=== PATIENT | female | born 1975 | race Caucasian/White ===

== ENCOUNTER 2019-06-01 13:48 | Emergency (ER) | payer MEDICAID ==
[2019-06-01] MEDS ORDERED: KETOROLAC TROMETHAMINE 60 MG/2 ML VIAL ONE (14:14)
== END 2019-06-01 14:21 | disposition home or self-care (01) ==
LOC: EDH 13:48
DX: N63.10 Unspecified lump in the right breast, unspecified quadrant (principal); F32.9 Major depressive disorder, single episode, unspecified; Z90.89 Acquired absence of other organs; Z90.710 Acquired absence of both cervix and uterus; Z72.0 Tobacco use; Z88.8 Allergy status to other drugs, medicaments and biological substances
CPT/HCPCS: 96372; 99283; J1885

== ENCOUNTER 2020-03-30 21:19 | Emergency (ER) | payer MEDICAID ==
[2020-03-30 22:12] LABS: BASOPHILS % (AUTO) 0.7 % (0.0-5.0); EOSINOPHILS % (AUTO) 4.1 % (0.0-8.0); HEMATOCRIT 37.7 % (36-48); LYMPHOCYTES % (AUTO) 47.6 % (21.0-51.0); MEAN CORPUSCULAR HEMOGLOBIN 31.3 pg (27.0-33.0); MEAN CORPUSCULAR HGB CONC 34.7 g/dL (32.0-36.0); MONOCYTES % (AUTO) 8.3 % (3.0-13.0); NEUTROPHILS % (AUTO) 39.2 % (40.0-77.0); PLATELET COUNT (AUTO) 237 K/uL (130-400); RED BLOOD CELL COUNT(AUTO) 4.19 MIL/uL (4.00-5.50); RED CELL DISTRIBUTION WIDTH 14.2 % (11.0-15.5); WHITE BLOOD COUNT (AUTO) 8.1 K/uL (4.8-10.8)
[2020-03-30 22:17] LABS: BILIRUBIN,URINE Negative (NEGATIVE); COLOR,URINE Yellow (YELLOW); GLUCOSE, URINE (UA) Negative (NEGATIVE); KETONES,URINE Negative (NEGATIVE); LEUKOCYTE ESTERASE ,URINE Negative (NEGATIVE); NITRATE,URINE Negative (NEGATIVE); OCCULT BLOOD,URINE Negative (NEGATIVE); PROTEIN,URINE Negative (NEGATIVE)
[2020-03-30 22:23] LABS: APPEARANCE,URINE CLEAR (CLEAR)
[2020-03-30 22:24] LABS: AMPHET/METH SCREEN,URINE NEGATIVE (NEGATIVE); BARBITURATE SCREEN, URINE NEGATIVE (NEGATIVE); BENZODIAZEPINES SCREEN,URINE NEGATIVE (NEGATIVE); CANNABINOID SCREEN,URINE POSITIVE (NEGATIVE); COCAINE SCREEN,URINE NEGATIVE (NEGATIVE); OPIATE SCREEN,URINE NEGATIVE (NEGATIVE); PHENCYCLIDINE SCREEN,URINE NEGATIVE (NEGATIVE)
[2020-03-30 22:28] LABS: HCG,QUAL RESULT NEGATIVE (NEGATIVE)
[2020-03-30 22:41] LABS: CHLORIDE 106 mmol/L (101-111); POTASSIUM 3.4 mmol/L (3.5-5.1); SODIUM SERUM 138 mmol/L (136-145)
[2020-03-30 22:57] LABS: ALANINE AMINOTRANSFERASE 8 U/L (12-78); ALBUMIN 3.4 g/dL (3.5-5.0); ASPARTATE AMINOTRANSFERASE 8 U/L (10-37); BILIRUBIN,TOTAL 0.5 mg/dL (0.2-1.0); CARBON DIOXIDE 23 mmol/L (21-32); CREATININE 0.9 mg/dL (0.5-1.5); GLOMERULAR FILTR. RATE CALC 72 mL/min (>60); GLUCOSE,RANDOM 88 mg/dL (70-105); TOTAL PROTEIN, SERUM 6.1 g/dL (6.0-8.3); UREA NITROGEN, BLOOD 15 mg/dL (7-18)
[2020-03-31 01:50] LABS: ACETAMINOPHEN 3 mcg/mL (10-30); ALCOHOL, BLOOD < 3 mg/dL (0-10); SALICYLATE 6.9 mg/dL (2.8-20.0)
[2020-03-31] MEDS ORDERED: POTASSIUM BICARB/CIT AC 25 MEQ TABLET.EFF ONE (02:16)
== END 2020-03-31 03:49 | disposition home or self-care (01) ==
LOC: EDH 21:19
DX: F31.9 Bipolar disorder, unspecified (principal); R45.851 Suicidal ideations; F12.10 Cannabis abuse, uncomplicated; F43.10 Post-traumatic stress disorder, unspecified; F41.9 Anxiety disorder, unspecified; Z88.8 Allergy status to other drugs, medicaments and biological substances; Z90.710 Acquired absence of both cervix and uterus; Z98.890 Other specified postprocedural states
CPT/HCPCS: 36415; 80053; 80305; 81003; 81025; 85025; 99283; G0480 ×2; G0481

== ENCOUNTER 2022-04-06 00:47 | Emergency (ER) | payer MEDICAID ==
[~2022-04-06] VITALS: Ht 160 cm; Wt 45.4 kg
[2022-04-06 01:41] LABS: BASOPHILS % (AUTO) 0.5 % (0.0-5.0); EOSINOPHILS % (AUTO) 5.2 % (0.0-8.0); HEMATOCRIT 42.6 % (36-48); LYMPHOCYTES % (AUTO) 38.6 % (21.0-51.0); MEAN CORPUSCULAR HEMOGLOBIN 31.1 pg (27.0-33.0); MEAN CORPUSCULAR HGB CONC 34.3 g/dL (32.0-36.0); MEAN CORPUSCULAR VOLUME 90.6 fL (79-99); MONOCYTES % (AUTO) 8.6 % (3.0-13.0); NEUTROPHILS % (AUTO) 46.9 % (40.0-77.0); PLATELET COUNT (AUTO) 247 K/uL (130-400); RED CELL DISTRIBUTION WIDTH 13.4 % (11.0-15.5); WHITE BLOOD COUNT (AUTO) 11.9 K/uL (4.8-10.8)
[2022-04-06 01:42] LABS: APPEARANCE,URINE CLEAR (CLEAR); BILIRUBIN,URINE NEGATIVE (NEGATIVE); COLOR,URINE YELLOW (YELLOW); GLUCOSE, URINE (UA) NEGATIVE (NEGATIVE); KETONES,URINE NEGATIVE (NEGATIVE); LEUKOCYTE ESTERASE ,URINE NEGATIVE (NEGATIVE); NITRATE,URINE NEGATIVE (NEGATIVE); OCCULT BLOOD,URINE NEGATIVE (NEGATIVE); PH,URINE 6.5 (5.0-8.0); PROTEIN,URINE NEGATIVE (NEGATIVE); UROBILINOGEN,URINE 0.2 mg/dL (0.2-1.0)
[2022-04-06 01:51] LABS: AMPHET/METH SCREEN,URINE NEGATIVE (NEGATIVE); BARBITURATE SCREEN, URINE NEGATIVE (NEGATIVE); BENZODIAZEPINES SCREEN,URINE NEGATIVE (NEGATIVE); CANNABINOID SCREEN,URINE POSITIVE (NEGATIVE); CARBON DIOXIDE 24 mmol/L (21-32); CHLORIDE 101 mmol/L (101-111); COCAINE SCREEN,URINE POSITIVE (NEGATIVE); CREATININE 0.7 mg/dL (0.5-1.5); GLOMERULAR FILTR. RATE CALC 95 mL/min (>60); GLUCOSE,RANDOM 89 mg/dL (70-105); OPIATE SCREEN,URINE NEGATIVE (NEGATIVE); PHENCYCLIDINE SCREEN,URINE NEGATIVE (NEGATIVE); POTASSIUM 3.9 mmol/L (3.5-5.1); SODIUM SERUM 136 mmol/L (136-145); UREA NITROGEN, BLOOD 11 mg/dL (7-18)
[2022-04-06 01:55] LABS: ALANINE AMINOTRANSFERASE 14 U/L (12-78); ALBUMIN 3.7 g/dL (3.5-5.0); ASPARTATE AMINOTRANSFERASE 20 U/L (10-37); BILIRUBIN,TOTAL 0.4 mg/dL (0.2-1.0); SALICYLATE 8.8 mg/dL (2.8-20.0); TOTAL PROTEIN, SERUM 7.2 g/dL (6.0-8.3)
[2022-04-06 02:06] VITALS: BP 104/66
[2022-04-06 02:11] LABS: ACETAMINOPHEN < 1 mcg/mL (10-30); ALCOHOL, BLOOD < 3 mg/dL (0-10)
== END 2022-04-06 03:58 | disposition home or self-care (01) ==
LOC: EDH 00:47
DX: Z04.6 Encounter for general psychiatric examination, requested by authority (principal); Z20.822 Contact with and (suspected) exposure to COVID-19; F41.9 Anxiety disorder, unspecified; F32.A Depression, unspecified; F43.10 Post-traumatic stress disorder, unspecified; Z98.890 Other specified postprocedural states; Z88.8 Allergy status to other drugs, medicaments and biological substances
CPT/HCPCS: 36415; 80053; 80305; 81003; 85025; 87635; 99283; C9803; G0481

== ENCOUNTER 2024-06-12 20:07 | Emergency (ER) | payer OTHER, MEDICAID ==
[~2024-06-12] VITALS: Ht 160 cm; Wt 39.5 kg
[2024-06-12 20:54] LABS: APPEARANCE,URINE CLEAR (CLEAR); BILIRUBIN,URINE NEGATIVE (NEGATIVE); COLOR,URINE COLORLESS (YELLOW); GLUCOSE, URINE (UA) NEGATIVE (NEGATIVE); KETONES,URINE NEGATIVE (NEGATIVE); LEUKOCYTE ESTERASE ,URINE NEGATIVE Leu/uL (NEGATIVE); NITRATE,URINE NEGATIVE (NEGATIVE); OCCULT BLOOD,URINE MODERATE (NEGATIVE); PROTEIN,URINE NEGATIVE (NEGATIVE); UROBILINOGEN,URINE 0.2 mg/dL (0.2-1.0)
[2024-06-12 20:56] LABS: ADD UA MICROSCOPIC YES
[2024-06-12 21:01] LABS: MUCUS,URINE RARE LPF (None Seen); RBC,URINE 0-1 /HPF (0-1); SQUAMOUS EPITHELIAL CELL,UR RARE /HPF (0-2)
[2024-06-12 21:07] LABS: BASOPHILS # (AUTO) 0.04 K/uL (0.00-0.20); BASOPHILS % (AUTO) 0.5 % (0.0-5.0); EOSINOPHILS # (AUTO) 0.28 K/uL (0.00-0.70); EOSINOPHILS % (AUTO) 3.4 % (0.0-8.0); HEMATOCRIT 34.4 % (36-48); IMMATURE GRANULOCYTE ABSOLUTE 0.02 K/uL (0-1); LYMPHOCYTES # (AUTO) 3.7 K/uL (1.0-4.8); LYMPHOCYTES % (AUTO) 45.3 % (21.0-51.0); MEAN CORPUSCULAR HEMOGLOBIN 31.1 pg (27.0-33.0); MEAN CORPUSCULAR HGB CONC 33.7 g/dL (32.0-36.0); MEAN CORPUSCULAR VOLUME 92.2 fL (79-99); MONOCYTES # (AUTO) 0.9 K/uL (0.1-1.0); MONOCYTES % (AUTO) 10.8 % (3.0-13.0); NEUTROPHILS # (AUTO) 3.2 K/uL (1.8-7.7); NEUTROPHILS % (AUTO) 39.8 % (40.0-77.0); PLATELET COUNT (AUTO) 257 K/uL (130-400); RED BLOOD CELL COUNT(AUTO) 3.73 MIL/uL (4.00-5.50); WHITE BLOOD COUNT (AUTO) 8.1 K/uL (4.8-10.8)
[2024-06-12] MEDS: 0.9%NACL 1000ML 1,000 ML IV ONE (21:07)
[2024-06-12] MEDS: KETOROLAC 30MG VIAL (30MG/ML) IVP ONE (21:07)
[2024-06-12 21:18] LABS: CREATININE 0.9 mg/dL (0.5-1.0); POTASSIUM 3.5 mmol/L (3.5-5.1)
[2024-06-12 21:23] LABS: ALBUMIN 3.4 g/dL (3.5-5.0); BILIRUBIN,TOTAL 0.6 mg/dL (0.2-1.0); TOTAL PROTEIN, SERUM 6.2 g/dL (6.0-8.3)
[2024-06-12] MEDS ORDERED: IOHEXOL-350 75 ML VIAL IV ONE (22:00)
[2024-06-12] MEDS ORDERED: CIPR-278 PO (23:25)
[2024-06-12 23:50] VITALS: BP 121/72; PULSE 80; RESP 16; O2SAT 97
[2024-06-14] MEDS ORDERED: CEPH500T PO (19:21)
[2024-06-14] MEDS ORDERED: FLUC200T PO (19:21)
== END 2024-06-13 00:15 ==
LOC: EDH 20:07
DX: K52.9 Noninfective gastroenteritis and colitis, unspecified (principal); R10.2 Pelvic and perineal pain; R11.2 Nausea with vomiting, unspecified; F41.9 Anxiety disorder, unspecified; Z88.8 Allergy status to other drugs, medicaments and biological substances; Z90.710 Acquired absence of both cervix and uterus; Z79.899 Other long term (current) drug therapy
CPT/HCPCS: 99285; 74177; 96374; 80053; 83690; 85025; 81001; 36415; J7030; J1885; Q9967

== ENCOUNTER 2024-06-14 16:56 | Emergency (ER) | payer OTHER, MEDICAID ==
[~2024-06-14] VITALS: Ht 157.5 cm; Wt 49.9 kg
[~2024-06-14 16:56] MED LIST: CIPR-278 PO
[2024-06-14 17:25] LABS: BASOPHILS # (AUTO) 0.05 K/uL (0.00-0.20); BASOPHILS % (AUTO) 0.7 % (0.0-5.0); EOSINOPHILS # (AUTO) 0.38 K/uL (0.00-0.70); HEMATOCRIT 36.4 % (36-48); IMMATURE GRANULOCYTE ABSOLUTE 0.02 K/uL (0-1); LYMPHOCYTES # (AUTO) 3.4 K/uL (1.0-4.8); LYMPHOCYTES % (AUTO) 44.6 % (21.0-51.0); MEAN CORPUSCULAR HEMOGLOBIN 31.7 pg (27.0-33.0); MEAN CORPUSCULAR HGB CONC 34.1 g/dL (32.0-36.0); MEAN CORPUSCULAR VOLUME 93.1 fL (79-99); MONOCYTES # (AUTO) 0.8 K/uL (0.1-1.0); MONOCYTES % (AUTO) 10.2 % (3.0-13.0); NEUTROPHILS % (AUTO) 39.2 % (40.0-77.0); PLATELET COUNT (AUTO) 259 K/uL (130-400); RED BLOOD CELL COUNT(AUTO) 3.91 MIL/uL (4.00-5.50); RED CELL DISTRIBUTION WIDTH 13.8 % (11.0-15.5); WHITE BLOOD COUNT (AUTO) 7.6 K/uL (4.8-10.8)
[2024-06-14 17:27] LABS: APPEARANCE,URINE CLEAR (CLEAR); BILIRUBIN,URINE NEGATIVE (NEGATIVE); COLOR,URINE COLORLESS (YELLOW); GLUCOSE, URINE (UA) NEGATIVE (NEGATIVE); KETONES,URINE NEGATIVE (NEGATIVE); LEUKOCYTE ESTERASE ,URINE NEGATIVE Leu/uL (NEGATIVE); NITRATE,URINE NEGATIVE (NEGATIVE); OCCULT BLOOD,URINE NEGATIVE (NEGATIVE); PROTEIN,URINE NEGATIVE (NEGATIVE); UROBILINOGEN,URINE 0.2 mg/dL (0.2-1.0)
[2024-06-14 17:28] LABS: ADD UA MICROSCOPIC YES
[2024-06-14 17:32] LABS: SQUAMOUS EPITHELIAL CELL,UR RARE /HPF (0-2); UNCLASSIFIED CRYSTAL 3 /HPF (None Seen); YEAST,URINE BUDDING FEW /HPF (None Seen)
[2024-06-14 17:35] LABS: AMPHET/METH SCREEN,URINE NEGATIVE (NEGATIVE); BARBITURATE SCREEN, URINE NEGATIVE (NEGATIVE); BENZODIAZEPINES SCREEN,URINE NEGATIVE (NEGATIVE); CANNABINOID SCREEN,URINE POSITIVE (NEGATIVE); COCAINE SCREEN,URINE NEGATIVE (NEGATIVE); OPIATE SCREEN,URINE NEGATIVE (NEGATIVE); PHENCYCLIDINE SCREEN,URINE NEGATIVE (NEGATIVE)
[2024-06-14 17:38] LABS: CREATININE 0.8 mg/dL (0.5-1.0); POTASSIUM 3.9 mmol/L (3.5-5.1)
[2024-06-14 17:42] LABS: ALBUMIN 3.5 g/dL (3.5-5.0); BILIRUBIN,TOTAL 0.2 mg/dL (0.2-1.0); CREATINE KINASE, TOTAL 172 U/L (21-232); TOTAL PROTEIN, SERUM 6.4 g/dL (6.0-8.3)
[2024-06-14] MEDS: 0.9%NACL 1000ML 1,000 ML IV ONE (18:56)
[2024-06-14] MEDS: ONDANSETRON 4MG INJ IV ONE (19:00)
[2024-06-14] MEDS: fluCONazole 200 MG/NS 100 ML IVPB SCH (19:00)
[2024-06-14] MEDS: MORPHINE 2 MG SYG IVP ONE (19:00)
[2024-06-14] MEDS ORDERED: FLUC200T PO (19:21)
[2024-06-14] MEDS ORDERED: CEPH500T PO (19:21)
[2024-06-14] MEDS ORDERED: IOHEXOL-350 75 ML VIAL IV ONE (19:57)
[2024-06-14] MEDS: cefTRIAXone 1G VIAL IVPB ONE (20:59)
[2024-06-14 21:47] VITALS: BP 132/82; PULSE 72; RESP 16; O2SAT 98
== END 2024-06-14 22:01 ==
LOC: EDH 16:56
DX: K59.00 Constipation, unspecified (principal); N39.0 Urinary tract infection, site not specified; F41.9 Anxiety disorder, unspecified; Z79.899 Other long term (current) drug therapy; Z88.8 Allergy status to other drugs, medicaments and biological substances; Z98.890 Other specified postprocedural states
CPT/HCPCS: 99285; 74177; 96365; 76705; 96375; 71045; 96366; 82550; 84484; 80053; 80305; 83690; 85025; 36415; 96368; 81001; J2270; J7030; J1450; J0696; J2405; Q9967

== ENCOUNTER 2024-11-11 08:52 | Emergency (ER) | payer MEDICAID, OTHER ==
[~2024-11-11] VITALS: Ht 160 cm; Wt 38.6 kg
[~2024-11-11 08:52] MED LIST changes: +CEPH500T PO; +FLUC200T PO
[2024-11-11 10:01] LABS: BASOPHILS # (AUTO) 0.07 K/uL (0.00-0.20); BASOPHILS % (AUTO) 1.1 % (0.0-5.0); EOSINOPHILS # (AUTO) 0.29 K/uL (0.00-0.70); EOSINOPHILS % (AUTO) 4.7 % (0.0-8.0); HEMATOCRIT 41.8 % (36-48); IMMATURE GRANULOCYTE ABSOLUTE 0.02 K/uL (0-1); LYMPHOCYTES # (AUTO) 2.4 K/uL (1.0-4.8); LYMPHOCYTES % (AUTO) 37.9 % (21.0-51.0); MEAN CORPUSCULAR HEMOGLOBIN 30.8 pg (27.0-33.0); MEAN CORPUSCULAR HGB CONC 33.3 g/dL (32.0-36.0); MEAN CORPUSCULAR VOLUME 92.7 fL (79-99); MONOCYTES # (AUTO) 0.7 K/uL (0.1-1.0); NEUTROPHILS # (AUTO) 2.8 K/uL (1.8-7.7); PLATELET COUNT (AUTO) 316 K/uL (130-400); RED BLOOD CELL COUNT(AUTO) 4.51 MIL/uL (4.00-5.50); RED CELL DISTRIBUTION WIDTH 13.8 % (11.0-15.5); WHITE BLOOD COUNT (AUTO) 6.2 K/uL (4.8-10.8)
--- NOTE | 2024-11-11 10:01 | EKG ---
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
[2024-11-11 10:02] LABS: APPEARANCE,URINE CLEAR (CLEAR); BILIRUBIN,URINE NEGATIVE (NEGATIVE); COLOR,URINE LIGHT-YELLOW (YELLOW); GLUCOSE, URINE (UA) NEGATIVE (NEGATIVE); KETONES,URINE 5 mg/dL (NEGATIVE); LEUKOCYTE ESTERASE ,URINE NEGATIVE Leu/uL (NEGATIVE); NITRATE,URINE NEGATIVE (NEGATIVE); PROTEIN,URINE NEGATIVE (NEGATIVE); UROBILINOGEN,URINE 0.2 mg/dL (0.2-1.0)
[2024-11-11 10:08] LABS: INR 0.95 (0.85-1.15); PROTHROMBIN TIME 10.7 SEC (9.6-11.6)
[2024-11-11 10:10] LABS: PARTIAL THROMBOPLASTIN TIME 30.6 SEC (26.3-35.5)
[2024-11-11 10:12] LABS: ALBUMIN 3.9 g/dL (3.5-5.0); BILIRUBIN,DIRECT 0.2 mg/dL (0.0-0.3); BILIRUBIN,TOTAL 0.9 mg/dL (0.2-1.0); CREATININE 0.8 mg/dL (0.5-1.0); POTASSIUM 4.1 mmol/L (3.5-5.1); TOTAL PROTEIN, SERUM 6.8 g/dL (6.0-8.3)
[2024-11-11] MEDS: morPHINE 2 MG SYG IVP ONE (10:12)
[2024-11-11] MEDS: ondanSETRON 4MG INJ IVP ONE (10:12)
[2024-11-11] MEDS: FAMOTIDINE 20MG VIAL IV ONE (10:12)
[2024-11-11 10:34] LABS: BACTERIA,URINE RARE /HPF (None Seen); CALCIUM OXALATE CRYSTALS,UR MANY /LPF (None Seen); MUCUS,URINE RARE LPF (None Seen); SQUAMOUS EPITHELIAL CELL,UR RARE /HPF (0-2)
--- NOTE | 2024-11-11 11:47 | ERN ---
General Chief Complaint: Abdominal Pain Stated Complaint: ABD PAIN Time Seen by MD: 08:58 History of Present Illness Initial Comments 49-year-old female no past medical history came in for abdominal pain located in epigastric region. Patient denies nausea vomiting. Patient also denies fever chills. Patient otherwise has no concerns. Allergies: Coded Allergies: citalopram (Unverified Allergy, Unknown, 06/01/19) divalproex sodium (Unverified Allergy, Unknown, 06/01/19) lithium (Unverified Allergy, Unknown, 06/01/19) olanzapine (Unverified Allergy, Unknown, 06/01/19) risperidone (Unverified Allergy, Unknown, 06/01/19) Home Meds Active Scripts Fluconazole (Diflucan) 200 Mg Tablet, 200 MG PO ONCE, #1 TAB Prov:BREANNE TERRY MD 06/14/24 Cephalexin (Cephalexin) 500 Mg Tablet, 500 MG PO QID, #20 TAB Prov:BREANNE TERRY MD 06/14/24 Ciprofloxacin HCl (Cipro) 500 Mg Tablet, 1 TAB PO BID for 5 Days, #10 TAB 0 Refills Prov:NEISHA KIRBY MD 06/12/24 Past Medical History Past Medical History: Anxiety, Bipolar, Depression, Seizure, Other Medical History Other: SI/SA Past Surgical History: Appendectomy, Hysterectomy, Tonsillectomy Surgical History Other: ABD SX FOR BOWEL REPAIR AT Social History Social History: Other Female( History) History: Not Applicable ROS Dictation CONSTITUTIONAL: Negative except for HPI HEAD/FACE: Negative except for HPI EENT: Negative except for HPI RESPIRATORY: Negative except for HPI GASTROINTESTINAL/ABDOMINAL: Negative except for HPI GENITOURINARY: Negative except for HPI MUSCULOSKELETAL: Negative except for HPI INTEGUMENTARY: Negative except for HPI NEUROLOGICAL/PSYCH: Negative except for HPI HEMATOLOGIC/LYMPHATIC: Negative except for HPI All Systems Negative, Except as noted above. 13 point review of systems assessed and all negative except for above. Physical Exam Physical Exam Dictation Vital Signs reviewed General Appearance: Alert, oriented x 3, no acute distress, well developed, nourished. Head and Face: non-traumatic. Eyes: PERRL, pink conjunctivas, eyelid no trauma, anterior chamber with arcus senilis. Ears: Pinnas intact and no signs of trauma or erythema ear canals clear and no discharge TM no erythema Nose: No discharge, no bleeding. Oropharynx: Mouth normal, tongue pink, pharynx clear,no erythema, tonsils no exudates, no abscesses noted, mucous membrane moist Neck: Supple, non-tender, no thyromegaly, no masses, no JVD, no bruits Breast:Deferred Chest:No tenderness, no crepitus, no paradoxical movement, no retractions Lungs:Clear, well-ventilated, symmetric, no rales, no wheezing, no rhonchi, no stridor, good breath sounds bilaterally Heart: Regular rate, regular rhythm, no murmur, no gallops Vascular: no peripheral edema, Abdomen: Soft, positive bowel sounds, nondistended, no guarding, nontender, no rebound, no masses no hepatomegaly, no splenomegaly, no Aguilar's sign, no hernias. Rectal: Deferred Genital: Deferred Neurological: Normal speech, motor function intact, sensory function intact Musculoskeletal: Neck nontender, full range of motion, back nontender, full range of motion, Extremities: nontender, full range of motion Skin: Color pink, dry, no turgor, no rash, no lacerations, no abrasions, no contusions. Lymphatic: Deferred Results Laboratory and Microbiology Lab and Micro Result Laboratory Tests Test 11/11/24 09:20 11/11/24 09:49 Urine Color LIGHT-YELLOW (YELLOW) Urine Appearance CLEAR (CLEAR) Urine pH 5.0 (5.0-8.0) Urine Specific [place] 1.020 (1.001-1.031) Urine Protein NEGATIVE mg/dL (NEGATIVE) Urine Glucose (UA) NEGATIVE mg/dL (NEGATIVE) Urine Ketones 5 mg/dL (NEGATIVE) H Urine Occult Blood +- (TRACE) (NEGATIVE) H Urine Nitrate NEGATIVE (NEGATIVE) Urine Bilirubin NEGATIVE mg/dL (NEGATIVE) Urine Urobilinogen 0.2 mg/dL (0.2-1.0) Urine Leukocyte Esterase NEGATIVE Moiz/uL Urine RBC 2-5 /HPF (0-1) H Urine WBC 2-5 /HPF (0-1) H Urine Squamous Epithelial Cells RARE /HPF (0-2) Urine Calcium Oxalate Crystals MANY /LPF (None Seen) Urine Bacteria RARE /HPF (None Seen) White Blood Count 6.2 K/uL (4.8-10.8) Red Blood Count 4.51 MIL/uL (4.00-5.50) Hemoglobin 13.9 g/dL (12.0-16.0) Hematocrit 41.8 % (36-48) Mean Corpuscular Volume 92.7 fL (79-99) Mean Corpuscular Hemoglobin 30.8 pg (27.0-33.0) Mean Corpuscular Hemoglobin Concent 33.3 g/dL (32.0-36.0) Red Cell Distribution Width 13.8 % (11.0-15.5) Platelet Count 316 K/uL (130-400) Mean Platelet Volume 8.4 fL (7.5-10.5) Immature Granulocyte % (Auto) 0.3 % (0-1) Neutrophils (%) (Auto) 45.0 % (40.0-77.0) Lymphocytes (%) (Auto) 37.9 % (21.0-51.0) Monocytes (%) (Auto) 11.0 % (3.0-13.0) Eosinophils (%) (Auto) 4.7 % (0.0-8.0) Basophils (%) (Auto) 1.1 % (0.0-5.0) Neutrophils # (Auto) 2.8 K/uL (1.8-7.7) Lymphocytes # (Auto) 2.4 K/uL (1.0-4.8) Monocytes # (Auto) 0.7 K/uL (0.1-1.0) Eosinophils # (Auto) 0.29 K/uL (0.00-0.70) Basophils # (Auto) 0.07 K/uL (0.00-0.20) Absolute Immature Granulocyte (auto 0.02 K/uL (0-1) Nucleated Red Blood Cells 0.0 % (0.0-0.19) Prothrombin Time 10.7 SEC (9.6-11.6) Prothromb Time International Ratio 0.95 (0.85-1.15) Activated Partial Thromboplast Time 30.6 SEC (26.3-35.5) Sodium Level 140 mmol/L (136-145) Potassium Level 4.1 mmol/L (3.5-5.1) Chloride Level 106 mmol/L (101-111) Carbon Dioxide Level 28 mmol/L (21-32) Blood Urea Nitrogen 18 mg/dL (7-18) Creatinine 0.8 mg/dL (0.5-1.0) Glomerular Filtration Rate Calc 90 mL/min (>90) Random Glucose 87 mg/dL (70-105) Lactic Acid Level 0.9 mmol/L (0.8-2.5) Total Calcium 8.5 mg/dL (8.5-10.1) Total Bilirubin 0.9 mg/dL (0.2-1.0) Direct Bilirubin 0.2 mg/dL (0.0-0.3) Aspartate Amino Transf (AST/SGOT) 18 U/L (10-37) Alanine Aminotransferase (ALT/SGPT) 21 U/L (12-78) Alkaline Phosphatase 96 U/L (50-136) Total Protein 6.8 g/dL (6.0-8.3) Albumin 3.9 g/dL (3.5-5.0) Lipase 39 U/L (16-77) Procalcitonin < 0.05 ng/mL (0.05-0.5) L MDM CC: Historian: Patient Comorbidities: Limitations by social determinants of health: None Differential diagnosis: Clinical exam: Vital signs: EKG: Labs: ED Course Orders Procedure Category Date Status Time 12 Lead Ekg Tracing- EKG 11/11/24 Complete Technical 09:07 Cbc With Differential LAB 11/11/24 Complete 09:07 Basic Metabolic Panel LAB 11/11/24 Complete 09:07 Hepatic Function Panel LAB 11/11/24 Complete 09:07 Lipase LAB 11/11/24 Complete 09:07 Lactic Acid LAB 11/11/24 Complete 09:07 Procalcitonin LAB 11/11/24 Complete 09:07 Pt And Ptt LAB 11/11/24 Complete 09:07 Urinalysis LAB 11/11/24 Complete W/Microscopic 09:07 Morphine 2mg Syg PHA 11/11/24 Complete (Morphine 2mg Syg) 09:30 Famotidine 20mg Vial PHA 11/11/24 Complete (Pepcid 20mg Vial) 09:30 Ondansetron 4mg Inj PHA 11/11/24 Complete (Zofran 4mg Inj) 09:30 Current Medications Medications (Trade) Dose Ordered Sig/Michael Route PRN Reason Start Time Stop Time Status Last Admin Dose Admin Famotidine (Pepcid 20mg Vial) 20 mg ONCE ONCE IV 11/11/24 09:30 11/11/24 09:31 DC 11/11/24 10:12 Morphine Sulfate (morPHINE 2MG SYG) 2 mg ONCE ONCE IVP 11/11/24 09:30 11/11/24 09:31 DC 11/11/24 10:12 Ondansetron HCl (zoFRAN 4MG INJ) 4 mg ONCE ONCE IVP 11/11/24 09:30 11/11/24 09:31 DC 11/11/24 10:12 Vital Signs Date Time Temp Pulse Resp B/P (MAP) Pulse Ox O2 Delivery O2 Flow Rate FiO2 11/11/24 10:26 98.2 81 18 112/54 97 Room Air* 0 11/11/24 09:16 98.2 76 18 132/73 97 Room Air* 0 11/11/24 08:54 98.1 86 17 141/83 100 Room Air 0 DX & DISP Disposition: Discharge Departure Impression: Primary Impression: Gastritis Condition: Stable Referrals: SELF,REFERRAL (PCP) JANES CAMARILLO MD Nov 11, 2024 11:47
[2024-11-11 11:57] VITALS: BP 118/63; PULSE 78; RESP 17; TEMP 98.2; O2SAT 97
== END 2024-11-11 14:41 | disposition home or self-care (01) ==
LOC: EDH 08:52
DX: K29.70 Gastritis, unspecified, without bleeding (principal); F31.9 Bipolar disorder, unspecified; Z88.8 Allergy status to other drugs, medicaments and biological substances; Z90.49 Acquired absence of other specified parts of digestive tract; Z90.710 Acquired absence of both cervix and uterus
CPT/HCPCS: 99284; 96374; 96375; 80076; 80048; 83690; 85025; 85610; 85730; 83605; 81001; 36415; 93005; 84145; J3490; J2270; J2405

== ENCOUNTER 2024-12-18 14:40 | Emergency (ER) | payer MEDICAID ==
[~2024-12-18] VITALS: Ht 160 cm; Wt 38.1 kg
--- NOTE | 2024-12-18 14:48 | ERN ---
ED Note History of Present Illness Stated Complaint: STOMACH AND BACK PAIN Time Seen by MD: 14:42 Dictation: PATIENT IS A 49-YEAR-OLD FEMALE HERE WITH COMPLAINTS OF ABDOMINAL PAIN WITH NAUSEA FOR SEVERAL DAYS. NO DIARRHEA NO VOMITING. SHE STATES SHE WAS AT [facility] SEVERAL DAYS AGO AND ADMITTED FOR ACUTE PANCREATITIS AND SIGNED OUT AGAINST MEDICAL ADVICE BECAUSE SHE FELT BETTER THAT DAY AND LEFT. SHE SAID SHE STARTED IMMEDIATELY FEELING WORSE AND NOW CAME TO OUR HOSPITAL FOR ANOTHER OPINION. Allergies: Coded Allergies: citalopram (Unverified Allergy, Unknown, 06/01/19) divalproex sodium (Unverified Allergy, Unknown, 06/01/19) lithium (Unverified Allergy, Unknown, 06/01/19) olanzapine (Unverified Allergy, Unknown, 06/01/19) risperidone (Unverified Allergy, Unknown, 06/01/19) Home Meds Active Scripts Ondansetron (Ondansetron Odt) 4 Mg Tab.rapdis, 4 MG PO Q6HPRN PRN for nausea, #16 TAB 0 Refills Prov:KELLIE MOTA NP 12/18/24 Dicyclomine HCl (Bentyl) 20 Mg Tab, 20 MG PO Q6HPRN PRN for ABDOMINAL CRAMPS /PAIN, #30 TAB Prov:KELLIE MOTA NP 12/18/24 Fluconazole (Diflucan) 200 Mg Tablet, 200 MG PO ONCE, #1 TAB Prov:BREANNE TERRY MD 06/14/24 Cephalexin (Cephalexin) 500 Mg Tablet, 500 MG PO QID, #20 TAB Prov:BREANNE TERRY MD 06/14/24 Ciprofloxacin HCl (Cipro) 500 Mg Tablet, 1 TAB PO BID for 5 Days, #10 TAB 0 Refills Prov:NEISHA KIRBY MD 06/12/24 Past Medical History Past Medical History: Anxiety, Bipolar, Depression, Seizure, Other Additional Past Medical Hx: SI/SA Surgical History: Appendectomy, Hysterectomy, Tonsillectomy Surgical History Other: ABD SX FOR BOWEL REPAIR AT Social History: Other History: Not Applicable RN Note Reviewed/Agreed w/PFSH: Yes Review of System Dictation CONSTITUTIONAL: NEGATIVE EXCEPT FOR HPI HEAD/FACE: NEGATIVE EXCEPT FOR HPI EENT: NEGATIVE EXCEPT FOR HPI RESPIRATORY: NEGATIVE EXCEPT FOR HPI GASTROINTESTINAL/ABDOMINAL: NEGATIVE EXCEPT FOR HPI DIFFUSE ABDOMINAL PAIN WITH NAUSEA GENITOURINARY: NEGATIVE EXCEPT FOR HPI MUSCULOSKELETAL: NEGATIVE EXCEPT FOR HPI INTEGUMENTARY: NEGATIVE EXCEPT FOR HPI NEUROLOGICAL/PSYCH: NEGATIVE EXCEPT FOR HPI HEMATOLOGIC/LYMPHATIC: NEGATIVE EXCEPT FOR HPI ALL SYSTEMS NEGATIVE, EXCEPT NOTED ABOVE. 13 POINT REVIEW OF SYSTEMS ASSESSED AND ALL NEGATIVE EXCEPT FOR ABOVE. Initial Vital Sign VS Vital Signs Date Time Temp Pulse Resp B/P (MAP) Pulse Ox O2 Delivery O2 Flow Rate FiO2 12/18/24 14:49 98.2 90 18 106/70 98 Room Air 0 12/18/24 19:06 21 Physical Exam Dictation VITAL SIGNS REVIEWED GENERAL APPEARANCE: ALERT, ORIENTED X 3, MILD ACUTE DISTRESS, WELL DEVELOPED, NOURISHED. HEAD AND FACE: NON-TRAUMATIC. EYES: PERRL, PINK CONJUNCTIVAS, EYELID NO TRAUMA, ANTERIOR CHAMBER WITH ARCUS SENILIS. EARS: PINNAS INTACT AND NO SIGNS OF TRAUMA OR ERYTHEMA EAR CANALS CLEAR AND NO DISCHARGE TM NO ERYTHEMA NOSE: NO DISCHARGE, NO BLEEDING. OROPHARYNX: MOUTH NORMAL, TONGUE PINK, PHARYNX CLEAR,NO ERYTHEMA, TONSILS NO EXUDATES, NO ABSCESSES NOTED, MUCOUS MEMBRANE MOIST NECK: SUPPLE, NON-TENDER, NO THYROMEGALY, NO MASSES, NO JVD, NO BRUITS BREAST:DEFERRED CHEST:NO TENDERNESS, NO CREPITUS, NO PARADOXICAL MOVEMENT, NO RETRACTIONS LUNGS:CLEAR, WELL-VENTILATED, SYMMETRIC, NO RALES, NO WHEEZING, NO RHONCHI, NO STRIDOR, GOOD BREATH SOUNDS BILATERALLY HEART: REGULAR RATE, REGULAR RHYTHM, NO MURMUR, NO GALLOPS VASCULAR: NO PERIPHERAL EDEMA, ABDOMEN: SOFT, POSITIVE BOWEL SOUNDS, NONDISTENDED, NO GUARDING, NONTENDER, NO REBOUND, NO MASSES NO HEPATOMEGALY, NO SPLENOMEGALY, NO TYSON'S SIGN, NO HERNIAS. NO FOCAL PAIN RECTAL: DEFERRED GENITAL: DEFERRED NEUROLOGICAL: NORMAL SPEECH, MOTOR FUNCTION INTACT, SENSORY FUNCTION INTACT MUSCULOSKELETAL: NECK NONTENDER, FULL RANGE OF MOTION, BACK NONTENDER, FULL RANGE OF MOTION, EXTREMITIES: NONTENDER, FULL RANGE OF MOTION SKIN: COLOR PINK, DRY, NO TURGOR, NO RASH, NO LACERATIONS, NO ABRASIONS, NO CONTUSIONS. LYMPHATIC: DEFERRED Results (Laboratory/Radiology) Laboratory/Radiology Laboratory Tests Test 12/18/24 15:03 12/18/24 15:15 White Blood Count 7.9 K/uL (4.8-10.8) Red Blood Count 4.12 MIL/uL (4.00-5.50) Hemoglobin 12.6 g/dL (12.0-16.0) Hematocrit 37.3 % (36-48) Mean Corpuscular Volume 90.5 fL (79-99) Mean Corpuscular Hemoglobin 30.6 pg (27.0-33.0) Mean Corpuscular Hemoglobin Concent 33.8 g/dL (32.0-36.0) Red Cell Distribution Width 13.3 % (11.0-15.5) Platelet Count 267 K/uL (130-400) Mean Platelet Volume 8.6 fL (7.5-10.5) Immature Granulocyte % (Auto) 0.3 % (0-1) Neutrophils (%) (Auto) 27.8 % (40.0-77.0) L Lymphocytes (%) (Auto) 55.3 % (21.0-51.0) H Monocytes (%) (Auto) 11.1 % (3.0-13.0) Eosinophils (%) (Auto) 4.7 % (0.0-8.0) Basophils (%) (Auto) 0.8 % (0.0-5.0) Neutrophils # (Auto) 2.2 K/uL (1.8-7.7) Lymphocytes # (Auto) 4.4 K/uL (1.0-4.8) Monocytes # (Auto) 0.9 K/uL (0.1-1.0) Eosinophils # (Auto) 0.37 K/uL (0.00-0.70) Basophils # (Auto) 0.06 K/uL (0.00-0.20) Absolute Immature Granulocyte (auto 0.02 K/uL (0-1) Nucleated Red Blood Cells 0.0 % (0.0-0.19) Sodium Level 140 mmol/L (136-145) Potassium Level 3.2 mmol/L (3.5-5.1) L Chloride Level 107 mmol/L (101-111) Carbon Dioxide Level 29 mmol/L (21-32) Blood Urea Nitrogen 13 mg/dL (7-18) Creatinine 0.8 mg/dL (0.5-1.0) Glomerular Filtration Rate Calc 90 mL/min (>90) Random Glucose 84 mg/dL (70-105) Total Calcium 8.3 mg/dL (8.5-10.1) L Lipase 56 U/L (16-77) Urine Color LIGHT-YELLOW (YELLOW) Urine Appearance CLEAR (CLEAR) Urine pH 5.0 (5.0-8.0) Urine Specific [place] 1.009 (1.001-1.031) Urine Protein NEGATIVE mg/dL (NEGATIVE) Urine Glucose (UA) NEGATIVE mg/dL (NEGATIVE) Urine Ketones NEGATIVE mg/dL (NEGATIVE) Urine Occult Blood NEGATIVE (NEGATIVE) Urine Nitrate NEGATIVE (NEGATIVE) Urine Bilirubin NEGATIVE mg/dL (NEGATIVE) Urine Urobilinogen 0.2 mg/dL (0.2-1.0) Urine Leukocyte Esterase 75 Moiz/uL (NEGATIVE) H Urine RBC 0-1 /HPF (0-1) Urine WBC 6-10 /HPF (0-1) H Urine Squamous Epithelial Cells RARE /HPF (0-2) Urine Bacteria None /HPF (None Seen) Labs Reviewed?: Yes ED Course ED Course Orders Procedure Category Date Status Time Cbc With Differential LAB 12/18/24 Complete 14:46 Urinalysis Profile LAB 12/18/24 Complete 14:46 0.9%Nacl 1000ml (Ns PHA 12/18/24 Complete 1000ml) 15:00 Morphine 2mg Syg PHA 12/18/24 Complete (Morphine 2mg Syg) 15:00 Ondansetron 4mg Inj PHA 12/18/24 Complete (Zofran 4mg Inj) 15:00 Lipase LAB 12/18/24 Complete 14:46 Basic Metabolic Panel LAB 12/18/24 Complete 14:46 Culture Urine ELIDA 12/18/24 In Process 15:41 Current Medications Medications (Trade) Dose Ordered Sig/Michael Route PRN Reason Start Time Stop Time Status Last Admin Dose Admin Morphine Sulfate (morPHINE 2MG SYG) 2 mg ONCE ONCE IVP 12/18/24 15:00 12/18/24 15:01 DC 12/18/24 18:21 Ondansetron HCl (zoFRAN 4MG INJ) 4 mg ONCE ONCE IVP 12/18/24 15:00 12/18/24 15:01 DC 12/18/24 18:20 Sodium Chloride 1,000 ml @ 0 mls/hr ONCE ONCE IV 12/18/24 15:00 12/18/24 15:01 DC 12/18/24 18:20 Vital Signs Date Time Temp Pulse Resp B/P (MAP) Pulse Ox O2 Delivery O2 Flow Rate FiO2 12/18/24 19:06 98.2 80 18 110/73 98 Room Air* 0 21 12/18/24 14:49 98.2 90 18 106/70 98 Room Air 0 1820/PATIENT MADE AWARE THAT SHE DOES NOT HAVE ACUTE PANCREATITIS. I WE WILL DISCHARGE HER HOME AFTER FLUIDS AND MORPHINE WITH BENTYL AND HAVE HER FOLLOW UP WITH HER PRIMARY CARE DOCTOR IN 1-2 DAYS. Medical Decision Making MDM MDM: DIFFERENTIAL DIAGNOSIS: ACUTE PANCREATITIS/GASTROENTERITIS/ABDOMINAL CRAMPING/UTI/ELECTROLYTE IMBALANCE RATIONALE: TESTS CONSIDERED AND ORDERED SECONDARY TO SHARED DECISION MAKING INCLUDE:/DEH LABS PREVIOUS OUTSIDE RECORDS REVIEWED: OLD ER VISITS. RISK OF COMPLICATION AND/OR MORBIDITY OR MORTALITY OF PATIENT MANAGEMENT: NONE MEDICATIONS-PER MEDICATION RECONCILIATION NEED FOR HOSPITALIZATION: PATIENT DOES NOT MEET CRITERIA FOR HOSPITALIZATION. NO NEED FOR EMERGENCY MAJOR/MINOR SURGERY: NO THERE ARE NO SOCIAL CONCERNS WITH THIS PATIENT. PRESCRIPTION DRUG MANAGEMENT BENTYL/ZOFRAN ODT PRESCRIPTIONS WILL INCLUDE SYMPTOMATIC CARE PATIENT'S PRIOR EXTERNAL MEDICAL RECORDS FROM OTHER ER VISITS WERE REVIEWED BY ME INDICATED. PRIOR TESTING AND RESULTS FROM PREVIOUS VISITS WERE REVIEWED. PRIOR TESTS WERE TAKEN INTO ACCOUNT WITH MEDICAL DECISION MAKING AND RESOURCE UTILIZATION, INDEPENDENT HISTORIAN/HISTORIANS WERE USED TO OBTAIN COMPLETE MEDICAL HISTORY. I INDEPENDENTLY INTERPRETED THE TEST THAT WERE PERFORMED, RESULTS WERE REVIEWED BY ME AND CONSIDERED FINDINGS ON RADIOLOGY IF ORDERED. MEDICAL MANAGEMENT AND EXAMINATION INTERPRETATION DISCUSSIONS WERE HAD BY ME WITH OTHER QUALIFIED HEALTHCARE PROFESSIONALS INDICATED FOR THE PATIENT'S CARE. DX & DISP Disposition: Discharge Departure Impression: Primary Impression: Gastroenteritis Additional Impressions: Hypokalemia, Abdominal cramps Condition: Stable Scripts Ondansetron (Ondansetron Odt) 4 Mg Tab.rapdis 4 MG PO Q6HPRN PRN for nausea, #16 TAB 0 Refills Prov: KELLIE MOTA SOFTWARE SUPPORT REPRESENTATIVE 12/18/24 Dicyclomine HCl (Bentyl) 20 Mg Tab 20 MG PO Q6HPRN PRN for ABDOMINAL CRAMPS /PAIN, #30 TAB Prov: KELLIE MOTA SOFTWARE SUPPORT REPRESENTATIVE 12/18/24 Additional Instructions: FOLLOW-UP WITH PRIMARY CARE PROVIDER IN 1 TO 2 DAYS. TAKE MEDICATIONS DIRECTED HERE IN THE EMERGENCY ROOM. OKAY TO CONTINUE HOME MEDICATIONS UNLESS OTHERWISE DISCUSSED DURING YOUR VISIT IN THE EMERGENCY ROOM TODAY. RETURN TO YOUR NEAREST EMERGENCY ROOM IF SYMPTOMS WORSEN OR IF THERE IS NO IMPROVEMENT. CALL 911 IF YOU NEED IMMEDIATE ASSISTANCE. TAKE TYLENOL OR MOTRIN [id number] NEEDED AND IF NO CONTRAINDICATIONS ARE PRESENT. INCREASE ORAL HYDRATION. A WOUND CULTURE OR URINE CULTURE WAS ORDERED HERE IN THE EMERGENCY ROOM DEPARTMENT PLEASE FOLLOW-UP WITH PRIMARY CARE PROVIDER AND ADVISE THEM TO GET REPEAT PORTS FROM OUR FACILITY. IF YOU HAD ANY LEVI WRAP/SPLINTS THAT WERE APPLIED HERE, PLEASE DO NOT REMOVE THEM UNTIL YOU SEE YOUR PRIMARY CARE OR SPECIALTY. CLEAR LIQUID DIET FOR THE NEXT18 HOURS AND THEN ADVANCE DIET SLOWLY TO REGULAR. TAKE BENTYL DIRECTED FOR CRAMPING. SEE YOUR PRIMARY CARE DOCTOR FOR FOLLOW UP Referrals: SELF,REFERRAL (PCP) Time of Disposition: 18:24 I have reviewed the case, and I agree with, Diagnosis and Plan KELLIE MOTA NP Dec 18, 2024 14:48 RAF MEYERS DO Dec 19, 2024 06:59
[2024-12-18 15:19] LABS: BASOPHILS # (AUTO) 0.06 K/uL (0.00-0.20); BASOPHILS % (AUTO) 0.8 % (0.0-5.0); EOSINOPHILS # (AUTO) 0.37 K/uL (0.00-0.70); EOSINOPHILS % (AUTO) 4.7 % (0.0-8.0); HEMATOCRIT 37.3 % (36-48); IMMATURE GRANULOCYTE ABSOLUTE 0.02 K/uL (0-1); LYMPHOCYTES # (AUTO) 4.4 K/uL (1.0-4.8); LYMPHOCYTES % (AUTO) 55.3 % (21.0-51.0); MEAN CORPUSCULAR HEMOGLOBIN 30.6 pg (27.0-33.0); MEAN CORPUSCULAR HGB CONC 33.8 g/dL (32.0-36.0); MEAN CORPUSCULAR VOLUME 90.5 fL (79-99); MONOCYTES # (AUTO) 0.9 K/uL (0.1-1.0); MONOCYTES % (AUTO) 11.1 % (3.0-13.0); NEUTROPHILS # (AUTO) 2.2 K/uL (1.8-7.7); NEUTROPHILS % (AUTO) 27.8 % (40.0-77.0); PLATELET COUNT (AUTO) 267 K/uL (130-400); RED BLOOD CELL COUNT(AUTO) 4.12 MIL/uL (4.00-5.50); RED CELL DISTRIBUTION WIDTH 13.3 % (11.0-15.5); WHITE BLOOD COUNT (AUTO) 7.9 K/uL (4.8-10.8)
[2024-12-18 15:30] LABS: CREATININE 0.8 mg/dL (0.5-1.0); POTASSIUM 3.2 mmol/L (3.5-5.1)
[2024-12-18 15:38] LABS: APPEARANCE,URINE CLEAR (CLEAR); BILIRUBIN,URINE NEGATIVE (NEGATIVE); COLOR,URINE LIGHT-YELLOW (YELLOW); GLUCOSE, URINE (UA) NEGATIVE (NEGATIVE); KETONES,URINE NEGATIVE (NEGATIVE); LEUKOCYTE ESTERASE ,URINE 75 Leu/uL (NEGATIVE); NITRATE,URINE NEGATIVE (NEGATIVE); OCCULT BLOOD,URINE NEGATIVE (NEGATIVE); PROTEIN,URINE NEGATIVE (NEGATIVE); UROBILINOGEN,URINE 0.2 mg/dL (0.2-1.0)
[2024-12-18 15:41] LABS: ADD UA MICROSCOPIC YES
[2024-12-18 15:43] LABS: MUCUS,URINE RARE LPF (None Seen); RBC,URINE 0-1 /HPF (0-1); SQUAMOUS EPITHELIAL CELL,UR RARE /HPF (0-2)
[2024-12-18] MEDS: 0.9%NACL 1000ML 1,000 ML IV ONE (18:20)
[2024-12-18] MEDS: ondanSETRON 4MG INJ IVP ONE (18:20)
[2024-12-18] MEDS: morPHINE 2 MG SYG IVP ONE (18:21)
[2024-12-18] MEDS ORDERED: ONDA-243 PO (18:25)
[2024-12-18] MEDS ORDERED: DICY20TA2 PO (18:25)
[2024-12-18 19:06] VITALS: BP 110/73; PULSE 80; RESP 18; TEMP 98.2; O2SAT 98
== END 2024-12-18 19:13 | disposition home or self-care (01) ==
LOC: EDH 14:40
DX: K52.9 Noninfective gastroenteritis and colitis, unspecified (principal); E87.6 Hypokalemia; F31.9 Bipolar disorder, unspecified; Z88.8 Allergy status to other drugs, medicaments and biological substances; Z90.49 Acquired absence of other specified parts of digestive tract; Z90.710 Acquired absence of both cervix and uterus
CPT/HCPCS: 99284; 96374; 96361; 96375; 80048; 83690; 85025; 87086; 81001; 36415; J2270; J7030; J2405

== ENCOUNTER 2024-12-22 20:29 | Emergency (ER) | payer MEDICAID ==
[~2024-12-22] VITALS: Ht 160 cm; Wt 38.1 kg
[~2024-12-22 20:29] MED LIST changes: +DICY20TA2 PO; +ONDA-243 PO
[2024-12-22 21:16] LABS: APPEARANCE,URINE CLEAR (CLEAR); BILIRUBIN,URINE NEGATIVE (NEGATIVE); COLOR,URINE COLORLESS (YELLOW); GLUCOSE, URINE (UA) NEGATIVE (NEGATIVE); KETONES,URINE NEGATIVE (NEGATIVE); LEUKOCYTE ESTERASE ,URINE NEGATIVE Leu/uL (NEGATIVE); NITRATE,URINE NEGATIVE (NEGATIVE); OCCULT BLOOD,URINE NEGATIVE (NEGATIVE); PROTEIN,URINE NEGATIVE (NEGATIVE); UROBILINOGEN,URINE 0.2 mg/dL (0.2-1.0)
[2024-12-22 21:18] LABS: BASOPHILS # (AUTO) 0.06 K/uL (0.00-0.20); BASOPHILS % (AUTO) 0.7 % (0.0-5.0); EOSINOPHILS # (AUTO) 0.55 K/uL (0.00-0.70); EOSINOPHILS % (AUTO) 6.1 % (0.0-8.0); HEMATOCRIT 37.7 % (36-48); IMMATURE GRANULOCYTE ABSOLUTE 0.02 K/uL (0-1); LYMPHOCYTES # (AUTO) 3.9 K/uL (1.0-4.8); LYMPHOCYTES % (AUTO) 42.6 % (21.0-51.0); MEAN CORPUSCULAR HEMOGLOBIN 30.8 pg (27.0-33.0); MEAN CORPUSCULAR HGB CONC 32.9 g/dL (32.0-36.0); MEAN CORPUSCULAR VOLUME 93.8 fL (79-99); MONOCYTES # (AUTO) 0.7 K/uL (0.1-1.0); MONOCYTES % (AUTO) 8.2 % (3.0-13.0); NEUTROPHILS # (AUTO) 3.8 K/uL (1.8-7.7); NEUTROPHILS % (AUTO) 42.2 % (40.0-77.0); PLATELET COUNT (AUTO) 235 K/uL (130-400); RED BLOOD CELL COUNT(AUTO) 4.02 MIL/uL (4.00-5.50); RED CELL DISTRIBUTION WIDTH 13.3 % (11.0-15.5)
[2024-12-22 21:21] LABS: ADD UA MICROSCOPIC NO
[2024-12-22 21:27] LABS: CREATININE 0.7 mg/dL (0.5-1.0); POTASSIUM 4.8 mmol/L (3.5-5.1)
[2024-12-22] MEDS: PANTOPrazole 40 MG/VIAL ONE (22:04)
[2024-12-22] MEDS: ondanSETRON 4MG INJ IVP ONE (22:04)
[2024-12-22] MEDS: ondanSETRON 4MG INJ ONE (22:04)
[2024-12-22] MEDS: PANTOPrazole 40 MG/VIAL IVP ONE (22:04)
--- NOTE | 2024-12-22 22:26 | ERN ---
ED Note History of Present Illness Stated Complaint: FROM [facility] ABDOMINAL PAIN Chief Complaint: Abdominal Pain Time Seen by MD: 20:31 Dictation: This is a 49-year-old female who was referred from [facility] for evaluation of abdominal pain. She has extensive psychiatric history and reported that the abdominal pain is diffuse. She also had nausea and vomitings. She states that she had bowel movements and denied diarrhea hematemesis or melena Temperature 98.1 pulse 83 respirations 16 blood pressure 133/85 with a pulse oximetry of 98% on room air Allergies: Coded Allergies: citalopram (Unverified Allergy, Unknown, 06/01/19) divalproex sodium (Unverified Allergy, Unknown, 06/01/19) lithium (Unverified Allergy, Unknown, 06/01/19) olanzapine (Unverified Allergy, Unknown, 06/01/19) risperidone (Unverified Allergy, Unknown, 06/01/19) Home Meds Active Scripts Magnesium Citrate (Magnesium Citrate) 296 Ml Solution, 296 ML PO ONCE for 1 Day, #296 ML 0 Refills Prov:WILTON GALVIN MD 12/22/24 Sennosides/Docusate Sodium (Senna-Docusate Sodium Tablet) 8.6 Mg-50 Mg Tablet, 1 TAB PO DAILY for 20 Days, #20 TAB 0 Refills Prov:WILTON GALVIN MD 12/22/24 Ondansetron (Ondansetron Odt) 4 Mg Tab.rapdis, 4 MG PO Q6HPRN PRN for nausea, #16 TAB 0 Refills Prov:KELLIE MOTA NP 12/18/24 Dicyclomine HCl (Bentyl) 20 Mg Tab, 20 MG PO Q6HPRN PRN for ABDOMINAL CRAMPS /PAIN, #30 TAB Prov:KELLIE MOTA NP 12/18/24 Fluconazole (Diflucan) 200 Mg Tablet, 200 MG PO ONCE, #1 TAB Prov:BREANNE TERRY MD 06/14/24 Cephalexin (Cephalexin) 500 Mg Tablet, 500 MG PO QID, #20 TAB Prov:BREANNE TERRY MD 06/14/24 Ciprofloxacin HCl (Cipro) 500 Mg Tablet, 1 TAB PO BID for 5 Days, #10 TAB 0 Refills Prov:NEISHA KIRBY MD 06/12/24 Past Medical History Past Medical History: Pancreatitis, Seizure Additional Past Medical Hx: SI/SA Surgical History: Appendectomy, Hysterectomy Surgical History Other: ABD SX FOR BOWEL REPAIR AT PSYCH History: anxiety, bipolar, depression Social History: Other History: Not Applicable RN Note Reviewed/Agreed w/PFSH: Yes Review of System Dictation Constitutional: Negative for fever,chills, and weight loss Eyes: Negative for injury, pain,redness, and discharge ENT: Negative for injury,pain or swelling Cardiovascular: Negative for chest pain, palpitations, and edema Respiratory: Negative for shortness of breath, cough, and wheezing, Abdomen/GI: Positive for abdominal pain, nausea, vomiting, denies diarrhea, Back: Negative for injury and pain : Negative for injury, bleeding and discharge MS/Extremity: Negative for injury and deformity Skin: Negative for rash, and discoloration Neuro: Negative for headache, weakness, numbness, tingling, and seizure Psych: Negative for suicide ideation, homicidal ideation, and hallucinations Initial Vital Sign VS Vital Signs Date Time Temp Pulse Resp B/P (MAP) Pulse Ox O2 Delivery O2 Flow Rate FiO2 12/22/24 20:33 98.1 83 16 133/85 98 Room Air 0 12/23/24 00:53 21 Physical Exam Dictation General: awake, alert, NAD Head/Face: Normocephalic, atraumatic Eyes: PERRL, EOMI, vision at baseline ENT: oral cavity clear, TMs clear, no signs of infection Neck: Trachea midline, supple, no nuchal rigidity Cardiovascular: RRR, normal S1/S2, No MRGs, no JVD Respiratory: CTAB, no respiratory distress, No rales or wheezes Abdomen: Soft, non-tender, non-distended, normal bowel sounds, no guarding or rebound. Skin: Warm, dry, normal turgor, no rash MS/Extremity: Pulses equal, no cyanosis, neurovascular intact, FROM Neuro: COAx4, GCS 15, strength 5/5, CN 2-12 intact, normal cerebellar exam, normal gait, Psych: Normal behavior, mood, and affect normal Extremities-trace edema without any palpable cords, Homans sign is negative Results (Laboratory/Radiology) Laboratory/Radiology Laboratory Tests Test 12/22/24 20:53 12/22/24 21:08 Urine Color COLORLESS (YELLOW) Urine Appearance CLEAR (CLEAR) Urine pH 7.0 (5.0-8.0) Urine Specific [place] 1.002 (1.001-1.031) Urine Protein NEGATIVE mg/dL (NEGATIVE) Urine Glucose (UA) NEGATIVE mg/dL (NEGATIVE) Urine Ketones NEGATIVE mg/dL (NEGATIVE) Urine Occult Blood NEGATIVE (NEGATIVE) Urine Nitrate NEGATIVE (NEGATIVE) Urine Bilirubin NEGATIVE mg/dL (NEGATIVE) Urine Urobilinogen 0.2 mg/dL (0.2-1.0) Urine Leukocyte Esterase NEGATIVE Moiz/uL White Blood Count 9.0 K/uL (4.8-10.8) Red Blood Count 4.02 MIL/uL (4.00-5.50) Hemoglobin 12.4 g/dL (12.0-16.0) Hematocrit 37.7 % (36-48) Mean Corpuscular Volume 93.8 fL (79-99) Mean Corpuscular Hemoglobin 30.8 pg (27.0-33.0) Mean Corpuscular Hemoglobin Concent 32.9 g/dL (32.0-36.0) Red Cell Distribution Width 13.3 % (11.0-15.5) Platelet Count 235 K/uL (130-400) Mean Platelet Volume 8.7 fL (7.5-10.5) Immature Granulocyte % (Auto) 0.2 % (0-1) Neutrophils (%) (Auto) 42.2 % (40.0-77.0) Lymphocytes (%) (Auto) 42.6 % (21.0-51.0) Monocytes (%) (Auto) 8.2 % (3.0-13.0) Eosinophils (%) (Auto) 6.1 % (0.0-8.0) Basophils (%) (Auto) 0.7 % (0.0-5.0) Neutrophils # (Auto) 3.8 K/uL (1.8-7.7) Lymphocytes # (Auto) 3.9 K/uL (1.0-4.8) Monocytes # (Auto) 0.7 K/uL (0.1-1.0) Eosinophils # (Auto) 0.55 K/uL (0.00-0.70) Basophils # (Auto) 0.06 K/uL (0.00-0.20) Absolute Immature Granulocyte (auto 0.02 K/uL (0-1) Nucleated Red Blood Cells 0.0 % (0.0-0.19) Sodium Level 141 mmol/L (136-145) Potassium Level 4.8 mmol/L (3.5-5.1) Chloride Level 105 mmol/L (101-111) Carbon Dioxide Level 34 mmol/L (21-32) H Blood Urea Nitrogen 14 mg/dL (7-18) Creatinine 0.7 mg/dL (0.5-1.0) Glomerular Filtration Rate Calc 105 mL/min (>90) Random Glucose 91 mg/dL (70-105) Total Calcium 8.4 mg/dL (8.5-10.1) L Labs Reviewed?: Yes CT Scan Comment: PATIENT: LAYNE REYES MR#: [id number] : 1975 SEX: F AGE: 49 LOCATION: [facility] ORDER 24 STATUS: [facility] REPORT#: [id number] SERVICE 21 REASON: diffuse abdominal pain ORDERING PHYSICIAN: WILTON GALVIN MD PROCEDURE: ABD PEL WO - CT ABDOMEN/PELVIS W/O CONTRAST CT ABDOMEN/PELVIS W/O CONTRAST HISTORY: Diffuse abdominal pain COMPARISON: 06/14/2024 TECHNIQUE: Multiple sequential axial images of the abdomen and pelvis were obtained from the dome of the diaphragm through symphysis pubis. Patient was not given contrast through intravenous route. Oral contrast was not given. FINDINGS: No pleural effusion is seen bilaterally. There is no evidence of parenchymal disease or pulmonary nodule of the visualized lower lungs. Degenerative changes of the thoracolumbar spine are present. The heart is not enlarged. Liver is borderline enlarged measuring 16 cm. The liver, spleen, adrenal glands and pancreas are unremarkable. There is no evidence of hydronephrosis bilaterally. No evidence of renal stone is seen. Fecal material is seen in the colon. There are normal size retroperitoneal and mesenteric lymph nodes. No ascites is seen. Appendix is not well seen limiting evaluation. There is mild atherosclerosis. Pelvic sidewalls are symmetric bilaterally. Bladder is well distended without wall thickening. IMPRESSION: 1. Large amount of fecal material is seen in the colon. No ascites is seen. CT was performed with one or more following dose reduction techniques: automated exposure control, adjustment of the mA and kv according to patient's size, or use of a iterative reconstruction technique. DICTATED BY: MEHDI MCCARTY MD DATE: 12/22/242300 ELECTRONICALLY SIGNED BY: MEHDI MCCARTY MD DATE: 12/22/242304 ED Course ED Course Orders Procedure Category Date Status Time Cbc With Differential LAB 12/22/24 Complete 20: Basic Metabolic Panel LAB 12/22/24 Complete 20:31 Urinalysis Profile LAB 12/22/24 Complete 20:31 Ondansetron 4mg Inj PHA 12/22/24 Complete (Zofran 4mg Inj) 22:00 Pantoprazole 40mg Inj PHA 12/22/24 Complete (Protonix 40mg Inj 22:00 Pantoprazole 40mg Inj PHA 12/22/24 Complete (Protonix 40mg Inj 22:01 Ondansetron 4mg Inj PHA 12/22/24 Complete (Zofran 4mg Inj) 22:01 Promethazine Hcl PHA 12/22/24 Complete (Phenergan) 22:30 Ct Abdomen/Pelvis W/O CT 12/22/24 Resulted Contrast 22:22 Current Medications Medications (Trade) Dose Ordered Sig/Michael Route PRN Reason Start Time Stop Time Status Last Admin Dose Admin Ondansetron HCl (zoFRAN 4MG INJ) 4 mg ONCE ONCE IVP 12/22/24 22:00 12/22/24 22:02 DC 12/22/24 22:04 Ondansetron HCl (zoFRAN 4MG INJ) 4 mg STK-MED ONCE .ROUTE 12/22/24 22:01 12/22/24 22:01 DC Pantoprazole Sodium (PROTonix 40MG INJ) 40 mg ONCE ONCE IVP 12/22/24 22:00 12/22/24 22:02 DC 12/22/24 22:04 Pantoprazole Sodium (PROTonix 40MG INJ) 40 mg STK-MED ONCE .ROUTE 12/22/24 22:01 12/22/24 22:01 DC Promethazine HCl (Phenergan) 12.5 mg ONCE ONCE IM 12/22/24 22:30 12/22/24 22:31 DC 12/22/24 22:34 Vital Signs Date Time Temp Pulse Resp B/P (MAP) Pulse Ox O2 Delivery O2 Flow Rate FiO2 12/23/24 00:53 97.9 84 16 116/78 99 Room Air* 0 21 12/22/24 20:33 98.1 83 16 133/85 98 Room Air 0 We will perform diagnostic labs, advanced imaging and administer medications according to the patient's complaint. Once the results are available, will review and personally interpreted the labs to rule out any acute life- threatening emergency the trach require immediate intervention and treatment. I will then re-evaluate the patient after treatment and diagnostic exams have return to determine whether the patient requires any further testing, can safely be discharged home or need further admission to hospital for additional treatment and evaluation. Labs reviewed CBC BNP 7 are within normal limits urinalysis is unremarkable for any UTI. CT scan of the abdomen and pelvis was done which only showed large amounts of stool burden but no other abnormalities. She was placed on bowel regimen and laxatives and discharged to [facility] Medical Decision Making MDM MDM: Differential diagnosis: Colitis, gastritis, esophagitis, appendicitis, kidney stone, constipation Rationale: Tests considered and ordered secondary to shared decision making include: Previous outside records reviewed: Old ER visits. Risk of complication and/or morbidity or mortality of patient management: None Medications-Per medication reconciliation Need for hospitalization: Patient does not meet criteria for hospitalization. Need for emergency major/minor surgery: No There are no social concerns with this patient. Prescription drug management Prescriptions will include symptomatic care Patient's prior external medical records from other ER visits were reviewed by me as indicated. Prior testing and results from previous visits were reviewed. Prior tests were taken into account with medical decision making and resource utilization, independent historian/historians were used to obtain complete medical history. I independently interpreted the test that were performed, results were reviewed by me and considered findings on radiology if ordered. Medical management and examination interpretation discussions were had by me with other qualified healthcare professionals as indicated for the patient's care. Problem List Problem List: (1) Constipation (2) Abdominal cramps (3) Nausea and vomiting DX & DISP Disposition: Discharge Departure Impression: Primary Impression: Abdominal pain Additional Impressions: Nausea and vomiting, Constipation Condition: Stable Scripts Magnesium Citrate (Magnesium Citrate) 296 Ml Solution 296 ML PO ONCE for 1 Day, #296 ML 0 Refills Prov: WILTON GALVIN MD 12/22/24 Sennosides/Docusate Sodium (Senna-Docusate Sodium Tablet) 8.6 Mg-50 Mg Tablet 1 TAB PO DAILY for 20 Days, #20 TAB 0 Refills Prov: WILTON GALVIN MD 12/22/24 Additional Instructions: Patient and the caregiver have been informed of all the diagnostic tests and the imaging conducted during the today's visit to the emergency room and has verbalized understanding of the results I have personally reviewed and interpreted all diagnostic exams performed here in the ER today as well as the vital signs documented by the nursing staff. The patient is now being discharged to [facility] Referrals: MEHDI BACA MD (PCP) WILTON GALVIN MD Dec 22, 2024 22:26
[2024-12-22] MEDS: PROMETHAZINE HCL 25 MG/ML 1ML AMPULE IM ONE (22:34)
--- NOTE | 2024-12-22 23:05 | HMCIMG ---
CT ABDOMEN/PELVIS W/O CONTRAST HISTORY: Diffuse abdominal pain COMPARISON: 06/14/2024 TECHNIQUE: Multiple sequential axial images of the abdomen and pelvis were obtained from the dome of the diaphragm through symphysis pubis. Patient was not given contrast through intravenous route. Oral contrast was not given. FINDINGS: No pleural effusion is seen bilaterally. There is no evidence of parenchymal disease or pulmonary nodule of the visualized lower lungs. Degenerative changes of the thoracolumbar spine are present. The heart is not enlarged. Liver is borderline enlarged measuring 16 cm. The liver, spleen, adrenal glands and pancreas are unremarkable. There is no evidence of hydronephrosis bilaterally. No evidence of renal stone is seen. Fecal material is seen in the colon. There are normal size retroperitoneal and mesenteric lymph nodes. No ascites is seen. Appendix is not well seen limiting evaluation. There is mild atherosclerosis. Pelvic sidewalls are symmetric bilaterally. Bladder is well distended without wall thickening. IMPRESSION: 1. Large amount of fecal material is seen in the colon. No ascites is seen. CT was performed with one or more following dose reduction techniques: automated exposure control, adjustment of the mA and kv according to patient's size, or use of a iterative reconstruction technique.
[2024-12-22] MEDS ORDERED: SENN-7 PO (23:37)
[2024-12-22] MEDS ORDERED: MAGN296S73 PO (23:37)
[2024-12-23 00:53] VITALS: BP 116/78; PULSE 84; RESP 16; TEMP 97.8; O2SAT 99
--- NOTE | 2024-12-23 01:08 | NUR ---
PATIENT DISCHARGED WITH [facility] AND PICKED UP BY [facility]
== END 2024-12-23 01:08 ==
LOC: EDH 20:29
DX: R10.9 Unspecified abdominal pain (principal); R11.2 Nausea with vomiting, unspecified; K59.00 Constipation, unspecified; F41.9 Anxiety disorder, unspecified; F31.9 Bipolar disorder, unspecified; Z88.8 Allergy status to other drugs, medicaments and biological substances; Z90.49 Acquired absence of other specified parts of digestive tract; Z90.710 Acquired absence of both cervix and uterus
CPT/HCPCS: 99285; 74176; 96374; 96375; 80048; 85025; 81003; 36415; 96372; J2550; J2405; J2470

== ENCOUNTER 2025-03-07 12:34 | Emergency (ER) | payer MEDICAID ==
[~2025-03-07] VITALS: Ht 160 cm; Wt 35.4 kg
[~2025-03-07 12:34] MED LIST changes: +MAGN296S73 PO; +SENN-7 PO
[2025-03-07 13:49] LABS: BASOPHILS # (AUTO) 0.07 K/uL (0.00-0.20); EOSINOPHILS # (AUTO) 0.22 K/uL (0.00-0.70); EOSINOPHILS % (AUTO) 3.3 % (0.0-8.0); HEMATOCRIT 42.6 % (36-48); IMMATURE GRANULOCYTE ABSOLUTE 0.02 K/uL (0-1); LYMPHOCYTES # (AUTO) 2.6 K/uL (1.0-4.8); LYMPHOCYTES % (AUTO) 38.2 % (21.0-51.0); MEAN CORPUSCULAR HEMOGLOBIN 30.6 pg (27.0-33.0); MEAN CORPUSCULAR VOLUME 89.9 fL (79-99); MONOCYTES # (AUTO) 0.6 K/uL (0.1-1.0); MONOCYTES % (AUTO) 8.9 % (3.0-13.0); NEUTROPHILS # (AUTO) 3.3 K/uL (1.8-7.7); NEUTROPHILS % (AUTO) 48.3 % (40.0-77.0); PLATELET COUNT (AUTO) 269 K/uL (130-400); RED BLOOD CELL COUNT(AUTO) 4.74 MIL/uL (4.00-5.50); RED CELL DISTRIBUTION WIDTH 13.3 % (11.0-15.5); WHITE BLOOD COUNT (AUTO) 6.8 K/uL (4.8-10.8)
[2025-03-07 14:03] LABS: CREATININE 0.8 mg/dL (0.5-1.0); POTASSIUM 3.9 mmol/L (3.5-5.1)
[2025-03-07 14:11] LABS: APPEARANCE,URINE CLOUDY (CLEAR); BILIRUBIN,URINE NEGATIVE (NEGATIVE); COLOR,URINE YELLOW (YELLOW); GLUCOSE, URINE (UA) NEGATIVE (NEGATIVE); KETONES,URINE NEGATIVE (NEGATIVE); LEUKOCYTE ESTERASE ,URINE 25 Leu/uL (NEGATIVE); NITRATE,URINE NEGATIVE (NEGATIVE); OCCULT BLOOD,URINE SMALL (NEGATIVE); PROTEIN,URINE NEGATIVE (NEGATIVE); UROBILINOGEN,URINE 0.2 mg/dL (0.2-1.0)
[2025-03-07 14:16] LABS: ADD UA MICROSCOPIC YES
--- NOTE | 2025-03-07 14:16 | ERN ---
ED Note History of Present Illness Stated Complaint: ABDOMINAL PAIN Chief Complaint: Abdominal Pain Time Seen by MD: 13:07 Time Seen by Midlevel: 13:11 Dictation: 49-year-old female with a history of gastric ulcers, COPD coming in with complaints of left lower quadrant pain and left flank pain. Denies any nausea, vomiting, diarrhea, fevers. Patient states she has also been losing weight. States she had a colonoscopy and EGD scheduled for with takes his digestive but did not do it because of her losing weight and . Allergies: Coded Allergies: citalopram (Unverified Allergy, Unknown, 06/01/19) divalproex sodium (Unverified Allergy, Unknown, 06/01/19) lithium (Unverified Allergy, Unknown, 06/01/19) olanzapine (Unverified Allergy, Unknown, 06/01/19) risperidone (Unverified Allergy, Unknown, 06/01/19) Home Meds Active Scripts Magnesium Citrate (Magnesium Citrate) 296 Ml Solution, 296 ML PO ONCE for 1 Day, #296 ML 0 Refills Prov:WILTON GALVIN MD 12/22/24 Sennosides/Docusate Sodium (Senna-Docusate Sodium Tablet) 8.6 Mg-50 Mg Tablet, 1 TAB PO DAILY for 20 Days, #20 TAB 0 Refills Prov:WILTON GALVIN MD 12/22/24 Ondansetron (Ondansetron Odt) 4 Mg Tab.rapdis, 4 MG PO Q6HPRN PRN for nausea, #16 TAB 0 Refills Prov:KELLIE MOTA NP 12/18/24 Dicyclomine HCl (Bentyl) 20 Mg Tab, 20 MG PO Q6HPRN PRN for ABDOMINAL CRAMPS /PAIN, #30 TAB Prov:KELLIE MOTA NP 12/18/24 Fluconazole (Diflucan) 200 Mg Tablet, 200 MG PO ONCE, #1 TAB Prov:BREANNE TERRY MD 06/14/24 Cephalexin (Cephalexin) 500 Mg Tablet, 500 MG PO QID, #20 TAB Prov:BREANNE TERRY MD 06/14/24 Ciprofloxacin HCl (Cipro) 500 Mg Tablet, 1 TAB PO BID for 5 Days, #10 TAB 0 Refills Prov:NEISHA KIRBY MD 06/12/24 Past Medical History Past Medical History: Anxiety, Bronchitis, COPD, Pancreatitis, Seizure Additional Past Medical Hx: SI/SA,EPHYSEMA Surgical History: Appendectomy, Hysterectomy Surgical History Other: ABD SX FOR BOWEL REPAIR AT Social History: Other History: Not Applicable Review of System Dictation Constitutional: Negative for fever,chills, and weight loss Eyes: Negative for injury, pain,redness, and discharge ENT: Negative for injury,pain or swelling Cardiovascular: Negative for chest pain, palpitations, and edema Respiratory: Negative for shortness of breath, cough, and wheezing, Abdomen/GI: Left lower quadrant pain, no nausea, no vomiting, no diarrhea, and no constipation Back: Negative for injury and pain : Negative for injury, bleeding and discharge MS/Extremity: Negative for injury and deformity Skin: Negative for rash, and discoloration Neuro: Negative for headache, weakness, numbness, tingling, and seizure Psych: Negative for suicide ideation, homicidal ideation, and hallucinations Review of Systems: was completed Initial Vital Sign VS Vital Signs Date Time Temp Pulse Resp B/P (MAP) Pulse Ox O2 Delivery O2 Flow Rate FiO2 03/07/25 12:37 98.8 94 20 104/72 98 Room Air 03/07/25 13:30 0 21 Physical Exam Dictation General: awake, alert, NAD Head/Face: Normocephalic, atraumatic Eyes: PERRL, EOMI, vision at baseline ENT: oral cavity clear, TMs clear, no signs of infection Neck: Trachea midline, supple, no nuchal rigidity Cardiovascular: RRR, normal S1/S2, No MRGs, no JVD Respiratory: CTAB, no respiratory distress, No rales or wheezes Abdomen: Soft, non-tender, non-distended, normal bowel sounds, no guarding or rebound. No CVA tenderness Skin: Warm, dry, normal turgor, no rash MS/Extremity: Pulses equal, no cyanosis, neurovascular intact, FROM Neuro: COAx4, GCS 15, strength 5/5, CN 2-12 intact, normal cerebellar exam, normal gait, Psych: Normal behavior, mood, and affect normal Results (Laboratory/Radiology) Laboratory/Radiology Laboratory Tests Test 03/07/25 13:35 03/07/25 13:43 Urine Color YELLOW (YELLOW) Urine Appearance CLOUDY (CLEAR) H Urine pH 5.0 (5.0-8.0) Urine Specific [place] 1.026 (1.001-1.031) Urine Protein NEGATIVE mg/dL (NEGATIVE) Urine Glucose (UA) NEGATIVE mg/dL (NEGATIVE) Urine Ketones NEGATIVE mg/dL (NEGATIVE) Urine Occult Blood SMALL (NEGATIVE) H Urine Nitrate NEGATIVE (NEGATIVE) Urine Bilirubin NEGATIVE mg/dL (NEGATIVE) Urine Urobilinogen 0.2 mg/dL (0.2-1.0) Urine Leukocyte Esterase 25 Moiz/uL (NEGATIVE) H Urine RBC 2-5 /HPF (0-1) H Urine WBC 6-10 /HPF (0-1) H Urine Squamous Epithelial Cells MANY /HPF (0-2) Urine Bacteria FEW /HPF (None Seen) White Blood Count 6.8 K/uL (4.8-10.8) Red Blood Count 4.74 MIL/uL (4.00-5.50) Hemoglobin 14.5 g/dL (12.0-16.0) Hematocrit 42.6 % (36-48) Mean Corpuscular Volume 89.9 fL (79-99) Mean Corpuscular Hemoglobin 30.6 pg (27.0-33.0) Mean Corpuscular Hemoglobin Concent 34.0 g/dL (32.0-36.0) Red Cell Distribution Width 13.3 % (11.0-15.5) Platelet Count 269 K/uL (130-400) Mean Platelet Volume 8.7 fL (7.5-10.5) Immature Granulocyte % (Auto) 0.3 % (0-1) Neutrophils (%) (Auto) 48.3 % (40.0-77.0) Lymphocytes (%) (Auto) 38.2 % (21.0-51.0) Monocytes (%) (Auto) 8.9 % (3.0-13.0) Eosinophils (%) (Auto) 3.3 % (0.0-8.0) Basophils (%) (Auto) 1.0 % (0.0-5.0) Neutrophils # (Auto) 3.3 K/uL (1.8-7.7) Lymphocytes # (Auto) 2.6 K/uL (1.0-4.8) Monocytes # (Auto) 0.6 K/uL (0.1-1.0) Eosinophils # (Auto) 0.22 K/uL (0.00-0.70) Basophils # (Auto) 0.07 K/uL (0.00-0.20) Absolute Immature Granulocyte (auto 0.02 K/uL (0-1) Nucleated Red Blood Cells 0.0 % (0.0-0.19) Sodium Level 143 mmol/L (136-145) Potassium Level 3.9 mmol/L (3.5-5.1) Chloride Level 106 mmol/L (101-111) Carbon Dioxide Level 28 mmol/L (21-32) Blood Urea Nitrogen 15 mg/dL (7-18) Creatinine 0.8 mg/dL (0.5-1.0) Glomerular Filtration Rate Calc 90 mL/min (>90) Random Glucose 131 mg/dL (70-105) H Total Calcium 8.5 mg/dL (8.5-10.1) Lipase 42 U/L (16-77) Labs Reviewed?: Yes ED Course ED Course Orders Procedure Category Date Status Time Cbc With Differential LAB 03/07/25 Complete 13:27 Basic Metabolic Panel LAB 03/07/25 Complete 13:27 Lipase LAB 03/07/25 Complete 13:27 Urinalysis Profile LAB 03/07/25 Complete 13:27 0.9%Nacl 1000ml (Ns PHA 03/07/25 Complete 1000ml) 13:27 Morphine 2mg Syg PHA 03/07/25 Complete (Morphine 2mg Syg) 13:27 Ondansetron 4mg Inj PHA 03/07/25 Complete (Zofran 4mg Inj) 13:27 Culture Urine ELIDA 03/07/25 In Process 14:18 Current Medications Medications (Trade) Dose Ordered Sig/Michael Route PRN Reason Start Time Stop Time Status Last Admin Dose Admin Morphine Sulfate (morPHINE 2MG SYG) 2 mg ONCE STAT IVP 03/07/25 13:27 03/07/25 13:33 DC 03/07/25 14:22 Ondansetron HCl (zoFRAN 4MG INJ) 4 mg ONCE STAT IVP 03/07/25 13:27 03/07/25 13:33 DC 03/07/25 14:23 Sodium Chloride 1,000 ml @ 1,000 mls/hr Q1H STAT IV 03/07/25 13:27 03/07/25 14:26 DC 03/07/25 14:23 Vital Signs Date Time Temp Pulse Resp B/P (MAP) Pulse Ox O2 Delivery O2 Flow Rate FiO2 03/07/25 13:30 98.8 94 16 104/72 99 Room Air* 0 21 03/07/25 12:37 98.8 94 20 104/72 98 Room Air Medical Decision Making MDM MDM:49-year-old female with a history of gastric ulcers, COPD coming in with complaints of left lower quadrant pain and left flank pain. Denies any nausea, vomiting, diarrhea, fevers. Patient states she has also been losing weight. States she had a colonoscopy and EGD scheduled for with takes his digestive but did not do it because of her losing weight and and having no running water so she is unable to have bowel movements in her home, as they wanted to prescribed to her GoLYTELY.. Blood work is unremarkable. UA does not show any urinary tract infection and no significant hematuria. No suspicion for kidney stone. Need for further imaging. After fluids and pain medication patient states he feels much better. Educated patient that she needs to follow up outpatient with her GI specialist and consider rescheduling her colonoscopy and EGD. Discussed with the patient on special signs and symptoms of when to return back to the emergency room. Patient verbalized understanding, answered all questions. Differential diagnosis: Pyelonephritis, constipation, UTI, kidney stone Rationale: Tests considered and ordered secondary to shared decision making include: Previous outside records reviewed: Old ER visits. Risk of complication and/or morbidity or mortality of patient management: None Medications-Per medication reconciliation Need for hospitalization: Patient does not meet criteria for hospitalization. Need for emergency major/minor surgery: No There are no social concerns with this patient. Prescription drug management Prescriptions will include symptomatic care Patient's prior external medical records from other ER visits were reviewed by me as indicated. Prior testing and results from previous visits were reviewed. Prior tests were taken into account with medical decision making and resource u tilization, independent historian/historians were used to obtain complete medical history. I independently interpreted the test that were performed, results were reviewed by me and considered findings on radiology if ordered. Medical management and examination interpretation discussions were had by me with other qualified healthcare professionals as indicated for the patient's ca re. DX & DISP Disposition: Discharge Decision to Admit Date: March 07, 2025 Decision to Admit Time: 15:14 Departure Impression: Primary Impression: Abdominal pain Condition: Stable Referrals: TORKILDSEN,MEHDI H MD (PCP) I have reviewed the case, and I agree with, Diagnosis and Plan KEVIN LARIOS NP March 07, 2025 14:16
[2025-03-07 14:17] LABS: BACTERIA,URINE FEW /HPF (None Seen); MUCUS,URINE RARE LPF (None Seen); SQUAMOUS EPITHELIAL CELL,UR MANY /HPF (0-2)
[2025-03-07] MEDS: morPHINE 2 MG SYG IVP STA (14:22)
[2025-03-07] MEDS: ondanSETRON 4MG INJ IVP STA (14:23)
[2025-03-07] MEDS: 0.9%NACL 1000ML 1,000 ML IV STA (14:23)
[2025-03-07 15:31] VITALS: BP 111/68; PULSE 89; RESP 18; TEMP 98.4; O2SAT 96
--- NOTE | 2025-03-07 16:14 | NUR ---
PT AAOX4, PT IS STABLE VITALS WNL PT WAS ABLE TO EAT AND DRINK FLUIDS PRIOR TO DISCHARE NO C/O ABD PAIN AT THIS TIME. PT IV REMOVED CATHETER INTACT PT TAKEN BY W/C TO ED LOBBY STATES SHE CALLED TO PICK HER UP, PT HAS HER PERSONAL BELONGINGS WITH HER.
== END 2025-03-07 15:43 | disposition home or self-care (01) ==
LOC: EDH 12:34
DX: R10.32 Left lower quadrant pain (principal); F41.9 Anxiety disorder, unspecified; J44.9 Chronic obstructive pulmonary disease, unspecified; Z88.8 Allergy status to other drugs, medicaments and biological substances; Z90.49 Acquired absence of other specified parts of digestive tract; Z90.710 Acquired absence of both cervix and uterus
CPT/HCPCS: 99284; 96374; 96361; 96375; 80048; 83690; 85025; 87086; 81001; 36415; J2270; J7030; J2405